=== PATIENT | female | born 1955 | race Hispanic/Latino ===

== ENCOUNTER 2018-03-18 13:59 | Emergency (ER) | payer SELFPAY ==
[2018-03-18] MEDS ORDERED: Adacel (T-DAP) 0.5 ML VIAL ONE (17:32)
== END 2018-03-18 17:56 | disposition home or self-care (01) ==
LOC: ERS 13:59
DX: S61.217A Laceration without foreign body of left little finger without damage to nail, initial encounter (principal); E11.9 Type 2 diabetes mellitus without complications; F17.210 Nicotine dependence, cigarettes, uncomplicated; Z79.84 Long term (current) use of oral hypoglycemic drugs; Z23 Encounter for immunization; W26.0XXA Contact with knife, initial encounter; Y93.G3 Activity, cooking and baking; Y92.89 Other specified places as the place of occurrence of the external cause
CPT/HCPCS: 12001; 90471; 90715

== ENCOUNTER 2020-10-29 09:02 | Outpatient (CLI) | payer OTHER ==
--- NOTE | 2020-10-29 09:51 | RAD ---
2 views of the chest: 10/29/2020 COMPARISON: 09/06/2005 and 12/12/2017 HISTORY: Personal history of smoking FINDINGS: Heart and mediastinal contours are stable. Stable mild increased linear interstitial densit y noted, unchanged when compared to the 2018 exam. No pneumothorax, focal consolidation, or alveolar edema. IMPRESSION: Stable appearance of the chest as detailed above.
== END 2020-10-29 09:03 | disposition home or self-care (01) ==
LOC: BICRAD 09:02
PROVIDERS: ATTEND Family Medicine
DX: Z72.0 Tobacco use (principal); J98.4 Other disorders of lung
CPT/HCPCS: 71046

== ENCOUNTER 2022-05-04 10:58 | Outpatient (CLI) | payer MEDICARE | END 2022-05-04 10:59 | disposition home or self-care (01) | LOC: BICMAMMO 10:58 | PROVIDERS: ATTEND Family Medicine | DX: Z12.31 Encounter for screening mammogram for malignant neoplasm of breast (principal); R93.89 Abnormal findings on diagnostic imaging of other specified body structures | CPT/HCPCS: 71046; 77063; 77067 ==